=== PATIENT | male | born 1945 | race Caucasian/White ===

== ENCOUNTER 2016-10-07 08:05 | Day surgery (SDC) | payer MEDICARE, OTHER ==
--- NOTE | ~2016-10-07 | EGD ---
EGD REPORT [facility] [address] [address] NAME: HECTOR ROBINS : 41 STATUS : REG [facility] PAT#: [id number] AGE: 71 ADM/REG DATE : 10/07/16 MR#: [id number] REPORT SERV DATE: 10/07/16 DICTATED BY: FERMIN FUENTES DATE: 10/07/16 REPORT STATUS : Draft TRANSCRIBED BY: [facility] DATE: 10/07/16 Endoscopy Center Patient Name: Hector Robins Date of : 1945 Attending MD: FERMIN FUENTES MD Procedure Date No Time: 10/07/2016 Procedure: Upper GI endoscopy Indications: Dysphagia, Abnormal abdominal x-ray of the GI tract Referring MD: GONZALEZ BAZZI Medicines: See the Anesthesia note for documentation of the administered medications Complications: No immediate complications. Procedure: Pre-Anesthesia Assessment: - ASA Grade Assessment: IV - A patient with severe systemic disease that is a constant threat to life. After obtaining informed consent, the endoscope was passed under direct vision. Throughout the procedure, the patient's blood pressure, pulse, and oxygen saturations were monitored continuously. The GIF [id number] was introduced through the mouth, and advanced to the second part of duodenum. The upper GI endoscopy was accomplished without difficulty. The patient tolerated the procedure well. Findings: The examined duodenum was normal. Moderate inflammation characterized by whitish streaks and erythema was found in the gastric antrum. Biopsies were taken with a cold forceps for histology. A small hiatus hernia was present. Tortuous distal esophagus with resistance at GE junction, A guidewire was placed and the scope was withdrawn. Dilation was performed with a Savary dilator with no resistance at 45 Fr and no resistance at 48 Fr. Whitish patches in proximal esophagus, Biopsies were taken with a cold forceps for histology. Impression: - Normal examined duodenum. - Gastritis. Biopsied. - Hiatus hernia. - Tortuous distal esophagus with resistance at GE junction - Whitish patches in proximal esophagus Recommendation: - Patient has a contact number available for emergencies. The signs and symptoms of potential delayed EGD REPORT [address] [place]. [address] NAME: HECTOR ROBINS : [birth year] STATUS : REG [facility]#: [id number] AGE: 71 ADM/REG DATE : 10/07/16 MR#: [id number] REPORT SERV DATE: 10/07/16 DICTATED BY: FERMIN FUENTES DATE: 10/07/16 REPORT STATUS : Draft TRANSCRIBED BY: [facility] DATE: 10/07/16 complications were discussed with the patient. Return to normal activities tomorrow. Written discharge instructions were provided to the patient. - Clear liquid diet today. - Continue present medications. - Clear liquids today, soft diet tomorrow, regular diet the following day - Follow up with Dr Fuentes or his nurse practitioner in 4 weeks - Carafate 1 gm dissolved in 30 cc water four times per day for 2 weeks Procedure Code(s): --- Professional --- 83433, Esophagogastroduodenoscopy, flexible, transoral; with dilation of gastric/duodenal stricture(s) (eg, balloon, bougie) 17649, Esophagogastroduodenoscopy, flexible, transoral; with biopsy, single or multiple Diagnosis Code(s): --- Professional --- K29.70, Gastritis, unspecified, without bleeding K44.9, Diaphragmatic hernia without obstruction or gangrene R13.10, Dysphagia, unspecified R93.3, Abnormal findings on diagnostic imaging of other parts of digestive tract CPT copyright 2013 [employer]. All rights reserved. The codes documented in this report are preliminary and upon layout operator review may be revised to meet current compliance requirements. Fermin Fuentes MD FERMIN FUENTES MD 10/07/2016 10:37 AM This report has been signed electronically. Number of Addenda: 0 Note Initiated On: 10/07/2016 10:12 AM Scope Withdrawal Time 0 hours 0 minutes 0 seconds [address] [place] [address]
[~2016-10-07 08:05] MED LIST: ANDROGEL2.5 GM TOP; ARICEPT10 PO; ASAB PO; AUG875 PO; AVODART PO; BACLOFEN; CELEBREX2 PO; DIMETAPP120 MG OR; DOK250 MG PO; DRAMAMINE25 MG PO; DUONEB INH; EST PO; FERROUS SULF325 M1 PO; FLEX PO; FLONASE NAS; FLORASTOR250 MG PO; FOSAMAX70 MG PO; HYT5 PO; IRON325 MG PO; LYSINE PO; LYSINE1000 MG OR; MCZ25 PO; MEGACEUDL PO; MELATONIN PO; MELATONIN1 M1 PO; MORPHINE; NASAREL29 MCG NAS; NEUR300 PO; OXYCOD PO; OXYCON20 PO; PAIN PUMP; PCET PO; PERCOCET1 TA2 PO; PERI-COLACE1 TAB PO; PHOSLO PO; PRILO PO; PROVHFA INH; RANITIDINE300 MG PO; REM15 PO; RIFADIN 300 MG300 MG PO; SENTAB PO; SIMVASTATIN PO; SMZ PO; SPIRIVA INH; SUDAFED PO; TEG200 PO; TESTOSTERONE TOP; VITAMIN D31000 UNIT PO; VITE PO; ZANTAC300 MG PO; ZINC 50MG TABLET PO; ZINC SULFATE PO; ZOCOR40 PO; ZYRTEC ALLGY10 MG PO
== END 2016-10-07 23:59 | disposition home or self-care (01) ==
LOC: DMU 08:05
PROVIDERS: Internal Medicine Gastroenterology
PROC: 0DB68ZX Excision of Stomach, Via Natural or Artificial Opening Endoscopic, Diagnostic (ICD-10-PCS; principal; 2016-10-07 09:30)
DX: K20.8 Other esophagitis (principal); K29.50 Unspecified chronic gastritis without bleeding; K44.9 Diaphragmatic hernia without obstruction or gangrene; R13.10 Dysphagia, unspecified; R93.3 Abnormal findings on diagnostic imaging of other parts of digestive tract; Z79.899 Other long term (current) drug therapy; Z79.51 Long term (current) use of inhaled steroids; Z88.2 Allergy status to sulfonamides; Z88.1 Allergy status to other antibiotic agents
CPT/HCPCS: 88305; 88342

== ENCOUNTER 2016-10-15 19:42 | Inpatient (IN) | payer MEDICARE, OTHER ==
--- NOTE | ~2016-10-15 | CN ---
Consultation Report [facility] [address] [place]. [address] NAME: HECTOR ROBINS : 41 STATUS : ADM IN PAT#: [id number] AGE: 71 ADM/REG DATE : 10/16/16 MR#: [id number] REPORT SERV DATE: 10/18/16 DICTATED BY: BERNIE UPTON DATE: 10/16/16 REPORT STATUS : Draft TRANSCRIBED BY: MODL DATE: 10/16/16 CONSULTATION DATE OF CONSULTATION: 10/16/2016 REASON FOR EVALUATION: Chest pain and dysphagia. HISTORY OF PRESENT ILLNESS: Mr. Robins is a 71-year-old man seen by Sury Danielle on 09/29/2016 for the first time in referral from Dr. Verma for symptoms of dysphagia, reflux, and abnormal GI x-ray. The patient reports that he is unable to keep food or liquid down, for the last six weeks. On a lengthy interview, he reports his symptoms initially began with heartburn. This was managed with ranitidine and pantoprazole through the [place]. An upper GI with small-bowel follow-through was performed a [facility] demonstrated "marked dysmotility of the distal 2/3 of the esophagus with multiple tertiary contractions," "two small diverticula involving the distal esophagus," "mild gastroesophageal reflux without significant stricture," and cervical spine hardware. He was treated with Carafate which he believes initially gave him good results; however, he continuously needed to modify his diet, eventually tolerating only Ensure. An upper endoscopy was performed by Dr. Fuentes on 10/07/2016, which demonstrated a small hiatal hernia, a tortuous esophagus, and biopsies demonstrating lymphocytic esophagitis. Dilation was performed with 45 and 48-Mongolian dilators without resistance. The patient was seen in followup by Sury on 10/14/2016, when he complained of worsening symptoms. There was a suggestion he had aspirated a pill. Swallowing study was performed the next day, which demonstrated that there was follicular pooling, but no evidence of aspiration. He was admitted to the emergency room. He developed an episode of chest pain after swallowing, clutching his chest, reported as severe. This eventually passed. Constipation is "constant problem" in the setting of narcotic pump. He has undergone colonoscopy in the past at the [place]. PAST MEDICAL HISTORY: 1. Esophageal dysmotility of uncertain nature. 2. COPD, on home O2. 3. Anemia of chronic disease. 4. Chronic pain status post spinal fusion. 5. Chronic constipation. 6. Status post appendectomy. 7. Status post tonsillectomy. MEDICATIONS: On admission include aspirin, calcium citrate, Zyrtec, vitamin D3, Flexeril, docusate, Avodart, Neurontin, Remeron, naproxen, Ditropan, Percocet, Protonix, Zantac, Colace, Zocor, Carafate, AndroGel, vitamin D, and iron. ALLERGIES: SULFA CAUSES A RASH. CIMETIDINE CAUSES BREAST ENLARGEMENT. HE HAS PRIOR ALLERGY Consultation Report [address] [place]. [address] NAME: HECTOR ROBINS : [birth year] STATUS : ADM IN [facility]#: [id number] AGE: 71 ADM/REG DATE : 10/16/16 MR#: [id number] REPORT SERV DATE: 10/18/16 DICTATED BY: BERNIE UPTON DATE: 10/16/16 REPORT STATUS : Draft TRANSCRIBED BY: KACI DATE: 10/16/16 TO GEORGE, BUT DOES NOT RECALL THE PROBLEM. SOCIAL HISTORY: He is cared for through the [facility]. He has a remote history of tobacco use. He does not use alcohol. FAMILY HISTORY: Remarkable for colon polyp. REVIEW OF SYSTEMS: Remarkable for decreased oral intake, stress, home oxygen, reflux, chest pain, dysphagia, chronic constipation, headaches, joint pain, history of blood transfusion, anemia, and chronic fecal incontinence. PHYSICAL EXAMINATION: GENERAL: Elderly man, who is thin. Oxygen in place. VITAL SIGNS: Blood pressure 130/60, temperature 98.1, and heart rate 77. SKIN: Warm and dry. HEENT: No icterus. Oropharynx is moist. NECK: Limited range of motion. CHEST: With bilateral crackles. CARDIAC: Regular rate and rhythm. Normal S1, S2. ABDOMEN: Nondistended, somewhat scaphoid. His pain pump is palpable in the right lower quadrant. There is no gastric distention or tenderness. EXTREMITIES: Warm without edema. LABORATORY DATA: Sodium 139, potassium 4.0, BUN 23, and creatinine 0.96. AST 21, ALT 25, alkaline phosphatase 118, and total bilirubin 0.5. White blood cell count initially 20,000, now 13.9; hemoglobin 10.1; and platelets 243,000. IMPRESSION: 1. Suspect complex situation including esophageal dysmotility of uncertain nature, given hiatal hernia doubt achalasia, but consider equivalent situation. 2. Gastroesophageal reflux. 3. Lymphocytic esophagitis. 4. Consider delayed gastric emptying. 5. Chronic anemia. 6. Chest pain, differential diagnosis includes spasm, pill ulcer. 7. Cait, though this would be more likely to cause ongoing odynophagia. RECOMMENDATION: 1. Gastric emptying test. 2. Consider standard esophageal motility study. 3. P.o. fluticasone. 4. Consider sublingual nifedipine or nitrates if recurrent spasm, or for chronic management. 5. Consider metoclopramide. Consultation Report [address] [place]. [address] NAME: HECTOR ROBINS : 41 STATUS : ADM IN PAT#: [id number] AGE: 71 ADM/REG DATE : 10/16/16 MR#: [id number] REPORT SERV DATE: 10/18/16 DICTATED BY: BERNIE UPTON DATE: 10/16/16 REPORT STATUS : Draft TRANSCRIBED BY: MODL DATE: 10/16/16 6. Continue Carafate. 7. Bowel regimen. 8. Further recommendations pending above. Thank you for asking me to participate in his management. CS/MODL Bernie Upton M.D. / [id number] CC: DO Leonel Mcguire M.D. Donald Hetzel, M.D.
--- NOTE | ~2016-10-15 | HP ---
History And Physical [place] [id number] [facility] [place]. [address] NAME: HECTOR ROBINS : 41 STATUS : ADM IN PAT#: [id number] AGE: 71 ADM/REG DATE : 10/16/16 MR#: [id number] REPORT SERV DATE: 10/16/16 DICTATED BY: DOMENIC TOSCANO DATE: 10/16/16 REPORT STATUS : Draft TRANSCRIBED BY: MODL DATE: 10/16/16 DATE OF ADMISSION: 10/16/2016 POINT OF ENTRY: [facility] Emergency Department. PRIMARY DEAN OF INSTRUCTION: Gerber Pollock M.D. CHIEF COMPLAINT: Nausea, vomiting, and inability to tolerate oral intake. HISTORY OF PRESENT ILLNESS: Mr. Robins is a 71-year-old gentleman with a history of COPD, on 3 L by nasal cannula, chronic pain with a morphine pain pump, as well as a remote history of right-sided empyema requiring VATS and pleural decortication, who presents to the emergency department today with reports of a few-week history of intractable nausea, vomiting, and inability to tolerate any significant oral intake. The patient states that for the past few weeks he has had inability to tolerate any significant oral intake, but up until a few days ago had been able to tolerate some liquids as well as Ensure in order to maintain his nutrition. He has seen Dr. Goyo Pollock as well as nurse practitioner, Ms. Danielle, for workup and reportedly has undergone EGD on 10/07/2016 that showed some gastritis as well as a tortuous distal esophagus that was dilated. He also underwent abdominal ultrasound a few days ago that was otherwise unremarkable. A swallow study was performed yesterday, which showed some oral and vallecular pooling but no evidence of any fredy aspiration. I am unsure of any other additional imaging or workup he may have had for his abdominal complaints. The patient states that for the past three days he has unfortunately been unable to tolerate even any liquid intake as well. A few days ago, he tried to swallow some water and Ensure, and shortly after that, he developed a severe burning sensation in his chest, had to induce vomiting, and shortly after that, the chest discomfort and burning went away. The patient also does report an episode of aspiration about a week and a week and half ago while trying to swallow a pill. He denies any recent fevers, night sweats, chills, chest pain, significant abdominal pain, diarrhea, constipation, dysuria, melena, hematochezia, or hemoptysis. In addition to his nausea, vomiting, and inability to tolerate any oral intake, he does report some stable shortness of breath as well as a daily cough and sputum production. REVIEW OF SYSTEMS: A comprehensive review of systems otherwise negative unless listed in history of present illness. Initial evaluation in the emergency department is notable for stable vital signs with a white count of 18,700. He is on his home 3 L by nasal cannula. CT scan of the abdomen and pelvis was unremarkable except for some left mid lung and basal patchy infiltrates. The patient was subsequently admitted to the Hospitalist Service for further evaluation and management. PREVIOUS MEDICAL HISTORY: History And Physical [address] [address] NAME: HECTOR ROBINS : 41 STATUS : ADM IN [facility]#: [id number] AGE: 71 ADM/REG DATE : 10/16/16 MR#: [id number] REPORT SERV DATE: 10/16/16 DICTATED BY: DOMENIC TOSCANO DATE: 10/16/16 REPORT STATUS : Draft TRANSCRIBED BY: KACI DATE: 10/16/16 1. COPD, on 3 L by nasal cannula. 2. Remote history of ARDS and respiratory failure. 3. Hyperlipidemia. 4. Chronic back pain, on morphine pain pump. 5. History of right-sided empyema, status post VATS decortication. PAST SURGICAL HISTORY: 1. Multiple back surgeries including lumbar and cervical spine. 2. Appendectomy. 3. Right-sided VATS decortication. 4. Morphine pain pump insertion. 5. Neurostimulator insertion. ALLERGIES: STREPTOMYCIN, SULFA DRUGS, AND TAGAMET. MEDICATIONS: Home medications are pending at the time of dictation. SOCIAL HISTORY: He is a former smoker, quit about 20 years ago. Also former alcoholic, quit about 25 years ago. Denies any illicits. FAMILY MEDICAL HISTORY: Father with coronary artery disease. His brother reportedly starved himself to as he did not wish to live anymore. LABORATORIES AND IMAGIN. White count is 18.7, hemoglobin is 10.9, hematocrit is 33.3, platelet count is 267, and INR is 1.3. 2. Sodium is 140, potassium of 4.6, chloride of 101, carbon dioxide of 32, BUN of 26, creatinine of 1.08, glucose is 98, calcium is 9.5, protein is 8.0, albumin is 3.1, bilirubin is 0.4, ALT is 25, AST is 21, and alkaline phosphatase is 118. 3. Lactic acid is 1.1. 4. Urinalysis: Spec gravity is 1.023, trace ketones but no evidence of any infection. 5. Troponin value was negative. 6. EKG, per my review, shows normal sinus rhythm. No evidence of any acute ischemia or infarction. 7. CT scan of the abdomen and pelvis shows no acute findings in the abdomen or pelvis, left lung opacification consistent with airspace infiltrate of uncertain acuity. PHYSICAL EXAMINATION: VITAL SIGNS: Temperature is 98.2 degrees Fahrenheit, pulse is 86, respirations are 18, saturating 92% on 3 L by nasal cannula, and blood pressure of 132/71. GENERAL: The patient is awake, alert, and in no acute distress. He is an elderly male, chronically ill appearing. HEENT: Atraumatic and normocephalic. Slightly dry mucous membranes. Pupils are equal, round, and reactive to light and accommodation. Extraocular movements intact. No scleral icterus. NECK: No jugular venous distention. No carotid bruits. CARDIAC: Regular rate and rhythm. Normal S1, normal S2. History And Physical [address] [address] NAME: HECTOR ROBINS : 41 STATUS : ADM IN [facility]#: [id number] AGE: 71 ADM/REG DATE : 10/16/16 MR#: [id number] REPORT SERV DATE: 10/16/16 DICTATED BY: DOMENIC TOSCANO DATE: 10/16/16 REPORT STATUS : Draft TRANSCRIBED BY: MODL DATE: 10/16/16 LUNGS: On oxygen, but in no respiratory distress. Does have some inspiratory rhonchi in the left lung base, but otherwise no wheezes or crackles appreciated. ABDOMEN: Hypoactive bowel sounds throughout. Soft, nontender, and nondistended with no rebound, guarding, or rigidity. EXTREMITIES: Warm and perfused. No cyanosis, clubbing, or edema. SKIN: Warm and dry. PSYCHIATRIC: Affect is appropriate. NEUROLOGIC: Alert and oriented x3. Cranial nerves 2 through 12 grossly intact. Speech is normal. Gait not assessed. ASSESSMENT: Mr. Robins is a 71-year-old gentleman who presents with a few-week history of intractable nausea and vomiting. He is unable to tolerate any oral intake and incidentally found to have a left lower lobe infiltrate concerning for possible aspiration pneumonia. PROBLEM LIST: 1. Left lower lobe pneumonia concerning for aspiration pneumonia. 2. Leukocytosis. 3. Chronic obstructive pulmonary disease, on chronic 3 L by nasal cannula. 4. Intractable nausea, vomiting, inability to tolerate oral intake. 5. Dehydration. PLAN: 1. Left lower lobe infiltrate concerning for aspiration pneumonia. My concern for aspiration pneumonia includes his reported aspiration event about 10 days ago as well as evidence of oral and vallecular pooling on his swallow study, as well as having repeated episodes of vomiting recently. We will place the patient empirically on IV Zosyn, follow up blood cultures, try to obtain sputum cultures as well, and we will check urinary antigens. We will check a CT scan of the chest to better evaluate the entire lung field given the patient's recent history of empyema requiring VATS decortication. 2. Intractable nausea and vomiting with inability to tolerate oral intake. We will place the patient on IV PPI, provide supportive care with antiemetics and pain control. We will consult the patient's primary freight separator for assistance, although he has undergone extensive workup thus far that has been somewhat unremarkable except for some distal esophageal narrowing status post dilatation as well as a tortuous distal esophagus. We will hold the patient's aspirin as well as naproxen given also findings of gastritis. 3. Dehydration, provide aggressive IV fluid hydration. 4. DVT prophylaxis, Lovenox subcutaneous. 5. Code Status: The patient wishes to be full code. JCB/MODL Domenic Toscano MD History And Physical [address] [place]. [address] NAME: HECTOR ROBINS : 41 STATUS : ADM IN [facility]#: [id number] AGE: 71 ADM/REG DATE : 10/16/16 MR#: [id number] REPORT SERV DATE: 10/16/16 DICTATED BY: DOMENIC TOSCANO DATE: 10/16/16 REPORT STATUS : Draft TRANSCRIBED BY: ANNAMARIEL DATE: 10/16/16 / [id number] CC: DO Leonel Mcguire M.D. Vijaykurmar Patel, M.D.
--- NOTE | ~2016-10-15 | DS ---
Discharge Summary [facility] [address] [place]. [address] NAME: HECTOR ROBINS : 41 STATUS : DIS IN PAT#: [id number] AGE: 71 ADM/REG DATE : 10/16/16 MR#: [id number] REPORT SERV DATE: 10/25/16 DICTATED BY: ROSIE ALFONSO DATE: 10/21/16 REPORT STATUS : Draft TRANSCRIBED BY: MODL DATE: 10/21/16 ADMISSION DATE: 10/16/2016 DISCHARGE DATE: 10/21/2016 PRINCIPAL DIAGNOSES: Severe opioid-induced gastroparesis and constipation with intractable nausea and vomiting and aspiration pneumonia of left lower lobe. SECONDARY DIAGNOSES: Erosive esophagitis, dehydration, hypokalemia, chronic obstructive pulmonary disease. HISTORY OF PRESENT ILLNESS: Please see Dr. Orozco's dictation on 10/16/2016. HOSPITAL COURSE: The patient was admitted with intractable nausea, vomiting, abdominal and chest pain. Negative cardiac workup. EGD had revealed severe esophagitis and gastritis. Gastric emptying study showed no emptying at 70 minutes. The patient however was found to not only take high dose of oral opioids, but had a pain pump with baclofen and morphine and we were not able to excess. He was put on maximum prokinetic therapy including Reglan, naloxegol, and taken off his bowel slowing agents to greater degree as we could. He actually was able to defecate and able to tolerate p.o. and we recommended discharge with close followup with Dr. English, his pain doctor in [place]. He was released in satisfactory condition with Ditropan 5 b.i.d., Protonix b.i.d., Levaquin for two additional days, prednisone 10 for 2 additional days, Reglan 10 mg with meals, Movantik 25 daily, Neurontin 300 t.i.d., Dulera, Lipitor, Florastor, Remeron, Avodart, various vitamins, Carafate q.i.d., reduced dose of Percocet, and again the instructions to have his pain pump reset to reduce the morphine and baclofen dosages. He will follow up with Dr. Leonel Verma, his primary care provider in one to two weeks. Dr. English at the first available appointment and also with GI Clinic in a few weeks to have his other medicines tapered down after his opiates are tapered as well. TOM/KACI Rosie Alfonso M.D. / [id number] CC: Johanna Cool M.D. Ashok Saha, MD
[2016-10-15 23:16] LABS: BASOPHILS 0.2 %; BASOPHILS ABSOLUTE 0.03 10/3/uL (0.0-0.16); EOSINOPHILS 0.2 %; EOSINOPHILS ABSOLUTE 0.04 10/3/uL (0.0-0.53); ER CBC TAT 0 Hrs 12 Mins; HEMATOCRIT 33.3 % (40.0-51.0); HEMOGLOBIN 10.9 g/dL (13.6-17.8); IMMATURE GRANULOCYTES 0.3 %; IMMATURE GRANULOCYTES ABSOLUTE 0.06 10/3/uL (0.0-0.11); LYMPHOCYTES 6.2 %; LYMPHOCYTES ABSOLUTE 1.16 10/3/uL (0.67-4.30); MEAN CORPUS HGB CONC 32.7 g/dL (32.0-36.0); MEAN CORPUSCULAR HEMOGLOB 31.1 pg (26.0-34.0); MEAN CORPUSCULAR VOLUME 95.1 fL (80-100); MEAN PLATELET VOLUME 9.9 fL (9.2-13.0); MONOCYTES 6.9 %; MONOCYTES ABSOLUTE 1.29 10/3/uL (0.21-1.20); NEUTROPHILS 86.2 %; NEUTROPHILS ABSOLUTE 16.09 10/3/uL (2.02-8.40); PLATELET COUNT 267 10/3/uL (150-400); RBC DISTRIBUTION WIDTH 12.7 % (12.0-16.0); WHITE BLOOD CELLS 18.7 10/3/uL (4.5-10.5)
[2016-10-15 23:17] LABS: MANUAL DIFF NO %
[2016-10-15 23:21] LABS: INTERNATIONAL NORMAL RATI 1.3 UNITS (-); PARTIAL THROMBO TIME 40.7 SEC (22.5-37.2)
[2016-10-15 23:29] LABS: A/G RATIO 0.6 (0.7-1.9); ALBUMIN 3.1 G/DL (3.5-5.0); CALCIUM, SERUM 9.5 MG/DL (8.5-10.4); CHLORIDE, SERUM 101 MMOL/L (96-112); CO2 (CARBON DIOXIDE) 32 MMOL/L (24-34); CREATININE 1.08 MG/DL (0.70-1.30); GFR AFRICAN AMERICAN 78 ML/MIN (>=60); GFR NON AFRICAN AMERICAN 68 ML/MIN (>=60); GLOBULIN 4.9 G/DL (2.5-4.1); POTASSIUM, SERUM 4.6 MMOL/L (3.5-5.3); SGOT(AST) 21 U/L (5-40); SGPT(ALT) 25 U/L (5-65); SODIUM, SERUM 140 MMOL/L (135-148); TOTAL BILIRUBIN 0.4 MG/DL (0-1.2)
[2016-10-15 23:29] LABS: LACTATE 1.1 MMOL/L (0.3-2.4)
[2016-10-15 23:30] LABS: ALKALINE PHOSPHATASE 118 U/L (45-117); BUN (BLOOD UREA NITROGEN) 26 MG/DL (6-23); DIRECT BILIRUBIN < 0.1 MG/DL (0.0-0.4); GLUCOSE, SERUM 98 MG/DL (60-99); INDIRECT BILIRUBIN(NOT ORDER) 0.3 MG/DL (0.1-0.9)
[2016-10-15 23:33] LABS: TROPONIN I <0.02 NG/ML (<0.05)
[2016-10-16 00:25] LABS: PROCALCITONIN 1.95 ng/mL (<0.5)
[2016-10-16 00:38] LABS: ASCORBIC ACID (UR NOT ORDER) 40 (NEG); BILIRUBIN, URINE NEGATIVE (NEG); ER URINALYSIS TAT 0 Hrs 00 Mins; KETONE, URINE TRACE MG/DL (NEG); LEUKOCYTE ESTERASE(NOT OR NEG (NEG); NITRITE (URINE) NEG (NEG); WBC (NOT ORDERED) (RFLEX) 2 (0-5)
[2016-10-16] MEDS ORDERED: ANDROGEL1 % TOP (02:55)
[2016-10-16] MEDS ORDERED: FLEX PO (02:56)
[2016-10-16] MEDS ORDERED: CITRACAL PO (02:56)
[2016-10-16] MEDS ORDERED: AVODART PO (02:56)
[2016-10-16] MEDS ORDERED: IRON PO (02:58)
[2016-10-16] MEDS ORDERED: NAP375 PO (02:59)
[2016-10-16] MEDS ORDERED: PROTONIX PO (02:59)
[2016-10-16] MEDS ORDERED: VITAMIN D31000 UNIT PO (03:00)
[2016-10-16] MEDS ORDERED: PERI-COLACE1 TAB PO (03:00)
[2016-10-16] MEDS ORDERED: ASA5GR PO (03:01)
[2016-10-16] MEDS ORDERED: D.O.S.100 MG PO (03:02)
[2016-10-16] MEDS ORDERED: ZYRTEC ALLGY10 MG PO (03:02)
[2016-10-16] MEDS ORDERED: NEUR300 PO (03:04)
[2016-10-16] MEDS ORDERED: DITRO5 PO (03:05)
[2016-10-16] MEDS ORDERED: REM15 PO (03:05)
[2016-10-16] MEDS ORDERED: RANITIDINE300 MG PO (03:05)
[2016-10-16] MEDS ORDERED: VITE PO (03:06)
[2016-10-16] MEDS ORDERED: PCET PO (03:06)
[2016-10-16] MEDS ORDERED: ZOCOR80 MG PO (03:06)
[2016-10-16] MEDS ORDERED: SUCR PO (03:07)
[2016-10-16 06:53] LABS: BASOPHILS 0.1 %; BASOPHILS ABSOLUTE 0.02 10/3/uL (0.0-0.16); EOSINOPHILS 0.9 %; EOSINOPHILS ABSOLUTE 0.13 10/3/uL (0.0-0.53); HEMATOCRIT 31.1 % (40.0-51.0); HEMOGLOBIN 10.1 g/dL (13.6-17.8); IMMATURE GRANULOCYTES 0.4 %; IMMATURE GRANULOCYTES ABSOLUTE 0.05 10/3/uL (0.0-0.11); LYMPHOCYTES 7.9 %; MANUAL DIFF NO %; MEAN CORPUS HGB CONC 32.5 g/dL (32.0-36.0); MEAN CORPUSCULAR VOLUME 95.4 fL (80-100); MEAN PLATELET VOLUME 10.1 fL (9.2-13.0); MONOCYTES 6.5 %; MONOCYTES ABSOLUTE 0.91 10/3/uL (0.21-1.20); NEUTROPHILS 84.2 %; NEUTROPHILS ABSOLUTE 11.72 10/3/uL (2.02-8.40); PLATELET COUNT 243 10/3/uL (150-400); RBC DISTRIBUTION WIDTH 12.7 % (12.0-16.0); RED CELL COUNT 3.26 10/6/uL (4.7-6.1); WHITE BLOOD CELLS 13.9 10/3/uL (4.5-10.5)
[2016-10-16 06:57] LABS: BUN (BLOOD UREA NITROGEN) 23 MG/DL (6-23); CHLORIDE, SERUM 103 MMOL/L (96-112); CREATININE 0.96 MG/DL (0.70-1.30); GFR AFRICAN AMERICAN 91 ML/MIN (>=60); GFR NON AFRICAN AMERICAN 78 ML/MIN (>=60); GLUCOSE, SERUM 93 MG/DL (60-99); SODIUM, SERUM 139 MMOL/L (135-148)
[2016-10-16 06:58] LABS: CO2 (CARBON DIOXIDE) 27 MMOL/L (24-34)
[2016-10-16 10:41] LABS: HEMATOCRIT 30.1 % (40.0-51.0); HEMOGLOBIN 9.9 g/dL (13.6-17.8)
[2016-10-16 18:42] LABS: ASCORBIC ACID (UR NOT ORDER) 40 (NEG); BILIRUBIN, URINE NEGATIVE (NEG); KETONE, URINE 20 MG/DL (NEG); LEUKOCYTE ESTERASE(NOT OR NEG (NEG); WBC (NOT ORDERED) (RFLEX) 1 (0-5)
[2016-10-16 20:58] LABS: HEMATOCRIT 31.7 % (40.0-51.0); HEMOGLOBIN 10.4 g/dL (13.6-17.8)
[2016-10-17 03:53] LABS: BASOPHILS 0.1 %; BASOPHILS ABSOLUTE 0.01 10/3/uL (0.0-0.16); EOSINOPHILS 0.6 %; EOSINOPHILS ABSOLUTE 0.07 10/3/uL (0.0-0.53); HEMATOCRIT 28.7 % (40.0-51.0); HEMOGLOBIN 9.3 g/dL (13.6-17.8); IMMATURE GRANULOCYTES 0.3 %; IMMATURE GRANULOCYTES ABSOLUTE 0.03 10/3/uL (0.0-0.11); LYMPHOCYTES 10.6 %; LYMPHOCYTES ABSOLUTE 1.26 10/3/uL (0.67-4.30); MEAN CORPUS HGB CONC 32.4 g/dL (32.0-36.0); MEAN CORPUSCULAR VOLUME 95.7 fL (80-100); MEAN PLATELET VOLUME 10.1 fL (9.2-13.0); MONOCYTES 7.8 %; MONOCYTES ABSOLUTE 0.93 10/3/uL (0.21-1.20); NEUTROPHILS 80.6 %; NEUTROPHILS ABSOLUTE 9.58 10/3/uL (2.02-8.40); PLATELET COUNT 237 10/3/uL (150-400); RBC DISTRIBUTION WIDTH 12.5 % (12.0-16.0); WHITE BLOOD CELLS 11.9 10/3/uL (4.5-10.5)
[2016-10-17 03:54] LABS: MANUAL DIFF NO %
[2016-10-17 04:03] LABS: CHLORIDE, SERUM 104 MMOL/L (96-112); CO2 (CARBON DIOXIDE) 28 MMOL/L (24-34); CREATININE 0.93 MG/DL (0.70-1.30); GFR AFRICAN AMERICAN 94 ML/MIN (>=60); GFR NON AFRICAN AMERICAN 81 ML/MIN (>=60); PHOSPHORUS, SERUM 3.1 MG/DL (2.5-4.5); SODIUM, SERUM 141 MMOL/L (135-148)
[2016-10-17 04:04] LABS: BUN (BLOOD UREA NITROGEN) 19 MG/DL (6-23); GLUCOSE, SERUM 124 MG/DL (60-99)
[2016-10-18 05:09] LABS: BASOPHILS 0.1 %; BASOPHILS ABSOLUTE 0.01 10/3/uL (0.0-0.16); EOSINOPHILS 0.3 %; EOSINOPHILS ABSOLUTE 0.03 10/3/uL (0.0-0.53); HEMOGLOBIN 9.2 g/dL (13.6-17.8); IMMATURE GRANULOCYTES 0.4 %; IMMATURE GRANULOCYTES ABSOLUTE 0.04 10/3/uL (0.0-0.11); MANUAL DIFF NO %; MEAN CORPUS HGB CONC 32.9 g/dL (32.0-36.0); MEAN CORPUSCULAR HEMOGLOB 31.3 pg (26.0-34.0); MEAN CORPUSCULAR VOLUME 95.2 fL (80-100); MEAN PLATELET VOLUME 9.8 fL (9.2-13.0); MONOCYTES ABSOLUTE 0.64 10/3/uL (0.21-1.20); NEUTROPHILS 80.2 %; NEUTROPHILS ABSOLUTE 7.35 10/3/uL (2.02-8.40); PLATELET COUNT 252 10/3/uL (150-400); RBC DISTRIBUTION WIDTH 12.6 % (12.0-16.0); RED CELL COUNT 2.94 10/6/uL (4.7-6.1); WHITE BLOOD CELLS 9.2 10/3/uL (4.5-10.5)
[2016-10-18 05:32] LABS: CHLORIDE, SERUM 105 MMOL/L (96-112); CO2 (CARBON DIOXIDE) 29 MMOL/L (24-34); GFR AFRICAN AMERICAN 103 ML/MIN (>=60); GFR NON AFRICAN AMERICAN 89 ML/MIN (>=60); GLUCOSE, SERUM 102 MG/DL (60-99); POTASSIUM, SERUM 3.5 MMOL/L (3.5-5.3); SODIUM, SERUM 141 MMOL/L (135-148)
[2016-10-18 05:33] LABS: BUN (BLOOD UREA NITROGEN) 13 MG/DL (6-23); PHOSPHORUS, SERUM 2.1 MG/DL (2.5-4.5)
[2016-10-19 05:18] LABS: HEMATOCRIT 31.3 % (40.0-51.0); MANUAL DIFF YES %; MEAN CORPUS HGB CONC 31.9 g/dL (32.0-36.0); MEAN CORPUSCULAR HEMOGLOB 30.8 pg (26.0-34.0); MEAN CORPUSCULAR VOLUME 96.3 fL (80-100); MEAN PLATELET VOLUME 9.8 fL (9.2-13.0); PLATELET COUNT 290 10/3/uL (150-400); RBC DISTRIBUTION WIDTH 12.6 % (12.0-16.0); RED CELL COUNT 3.25 10/6/uL (4.7-6.1); WHITE BLOOD CELLS 10.4 10/3/uL (4.5-10.5)
[2016-10-19 05:42] LABS: BUN (BLOOD UREA NITROGEN) 12 MG/DL (6-23); CALCIUM, SERUM 9.5 MG/DL (8.5-10.4); CHLORIDE, SERUM 103 MMOL/L (96-112); CO2 (CARBON DIOXIDE) 31 MMOL/L (24-34); GFR AFRICAN AMERICAN 98 ML/MIN (>=60); GFR NON AFRICAN AMERICAN 84 ML/MIN (>=60); GLUCOSE, SERUM 100 MG/DL (60-99); PHOSPHORUS, SERUM 1.6 MG/DL (2.5-4.5); SODIUM, SERUM 140 MMOL/L (135-148)
[2016-10-19 06:12] LABS: PROCALCITONIN 0.21 ng/mL (<0.5)
[2016-10-19 06:14] LABS: BAND NEUTROPHILS 8 %; EOSINOPHILS 1 %; LYMPHOCYTES 12 %; LYMPHOCYTES ABSOLUTE (CALC) 1.25 10/3/uL (0.67-4.30); MONOCYTES 2 %; MONOCYTES ABSOLUTE (CALC) 0.21 10/3/uL (0.21-1.20); NEUTROPHILS ABSOLUTE (CALC) 8.84 10/3/uL (2.02-8.40); SEGMENTED NEUTROPHIL (0) 77 %; TOTAL NUCLEATED CELLS 100
[2016-10-19 06:17] LABS: PLATELET ESTIMATE ADQ (ADEQUATE)
[2016-10-19 06:18] LABS: RBC MORPHOLOGY NORM (NORMAL)
[2016-10-20 05:44] LABS: BASOPHILS 0.1 %; BASOPHILS ABSOLUTE 0.01 10/3/uL (0.0-0.16); EOSINOPHILS 0.6 %; EOSINOPHILS ABSOLUTE 0.06 10/3/uL (0.0-0.53); HEMATOCRIT 27.1 % (40.0-51.0); HEMOGLOBIN 8.8 g/dL (13.6-17.8); IMMATURE GRANULOCYTES 1.1 %; IMMATURE GRANULOCYTES ABSOLUTE 0.12 10/3/uL (0.0-0.11); LYMPHOCYTES ABSOLUTE 1.57 10/3/uL (0.67-4.30); MANUAL DIFF NO %; MEAN CORPUS HGB CONC 32.5 g/dL (32.0-36.0); MEAN CORPUSCULAR HEMOGLOB 31.1 pg (26.0-34.0); MEAN CORPUSCULAR VOLUME 95.8 fL (80-100); MEAN PLATELET VOLUME 9.9 fL (9.2-13.0); MONOCYTES 7.7 %; NEUTROPHILS 75.5 %; NEUTROPHILS ABSOLUTE 7.88 10/3/uL (2.02-8.40); PLATELET COUNT 264 10/3/uL (150-400); RBC DISTRIBUTION WIDTH 12.7 % (12.0-16.0); RED CELL COUNT 2.83 10/6/uL (4.7-6.1); RETICULOCYTE COUNT 1.2 % (0.5-2.5); RETICULOCYTE COUNT ABSOLUTE 34.5 10/3/uL (20.2-119.8); WHITE BLOOD CELLS 10.4 10/3/uL (4.5-10.5)
[2016-10-20 06:15] LABS: % IRON SAT 47 % (20-50); BUN (BLOOD UREA NITROGEN) 12 MG/DL (6-23); CALCIUM, SERUM 9.2 MG/DL (8.5-10.4); CHLORIDE, SERUM 105 MMOL/L (96-112); CO2 (CARBON DIOXIDE) 30 MMOL/L (24-34); CREATININE 0.88 MG/DL (0.70-1.30); FERRITIN 970 NG/ML (26-388); GFR AFRICAN AMERICAN 99 ML/MIN (>=60); GFR NON AFRICAN AMERICAN 85 ML/MIN (>=60); GLUCOSE, SERUM 117 MG/DL (60-99); IRON BINDING CAPACITY 130 MCG/DL (250-450); IRON, SERUM 61 MCG/DL (35-150); PHOSPHORUS, SERUM 1.9 MG/DL (2.5-4.5); SODIUM, SERUM 141 MMOL/L (135-148)
[2016-10-21 06:05] LABS: BASOPHILS 0.2 %; BASOPHILS ABSOLUTE 0.02 10/3/uL (0.0-0.16); EOSINOPHILS 1.8 %; EOSINOPHILS ABSOLUTE 0.19 10/3/uL (0.0-0.53); HEMOGLOBIN 9.8 g/dL (13.6-17.8); IMMATURE GRANULOCYTES 1.2 %; IMMATURE GRANULOCYTES ABSOLUTE 0.13 10/3/uL (0.0-0.11); LYMPHOCYTES ABSOLUTE 1.39 10/3/uL (0.67-4.30); MEAN CORPUS HGB CONC 32.1 g/dL (32.0-36.0); MEAN CORPUSCULAR HEMOGLOB 30.7 pg (26.0-34.0); MEAN CORPUSCULAR VOLUME 95.6 fL (80-100); MEAN PLATELET VOLUME 9.7 fL (9.2-13.0); MONOCYTES 7.4 %; MONOCYTES ABSOLUTE 0.79 10/3/uL (0.21-1.20); NEUTROPHILS 76.4 %; NEUTROPHILS ABSOLUTE 8.16 10/3/uL (2.02-8.40); PLATELET COUNT 294 10/3/uL (150-400); RBC DISTRIBUTION WIDTH 12.7 % (12.0-16.0); RED CELL COUNT 3.19 10/6/uL (4.7-6.1); WHITE BLOOD CELLS 10.7 10/3/uL (4.5-10.5)
[2016-10-21 06:06] LABS: HEMATOCRIT 30.5 % (40.0-51.0)
[2016-10-21 06:07] LABS: MANUAL DIFF NO %
[2016-10-21] MEDS ORDERED: FLONASE NAS (09:55)
[2016-10-21] MEDS ORDERED: LEVAQUIN750 MG PO ×2 (09:57→10:11)
[2016-10-21] MEDS ORDERED: REG PO ×2 (09:58→10:12)
[2016-10-21] MEDS ORDERED: PROTONIX PO (10:09)
[2016-10-21] MEDS ORDERED: REM15 PO (10:12)
[2016-10-21] MEDS ORDERED: ZYRTEC ALLGY10 MG PO (10:12)
[2016-10-21] MEDS ORDERED: MOVANTIK25 MG PO (10:13)
[2016-10-21] MEDS ORDERED: VITAMIN D31000 UNIT PO (10:15)
[2016-10-21] MEDS ORDERED: AVODART PO (10:18)
[2016-10-21] MEDS ORDERED: P10 PO (10:20)
[2016-10-21] MEDS ORDERED: DULERA 200 MCG/13 GM INH (10:20)
== END 2016-10-21 12:09 | disposition home or self-care (01) | DRG 177 ==
LOC: ER 19:42 → 1SO 10-16 02:55
PROVIDERS: Internal Medicine; Nurse Practitioner
DX: J69.0 Pneumonitis due to inhalation of food and vomit (principal); J96.21 Acute and chronic respiratory failure with hypoxia; K22.10 Ulcer of esophagus without bleeding; Z99.81 Dependence on supplemental oxygen; J44.9 Chronic obstructive pulmonary disease, unspecified; B37.9 Candidiasis, unspecified; K31.84 Gastroparesis; E78.5 Hyperlipidemia, unspecified; D63.8 Anemia in other chronic diseases classified elsewhere; Z66 Do not resuscitate; G89.29 Other chronic pain; E86.0 Dehydration; K21.9 Gastro-esophageal reflux disease without esophagitis; M54.9 Dorsalgia, unspecified; K22.4 Dyskinesia of esophagus; K44.9 Diaphragmatic hernia without obstruction or gangrene; K59.03 Drug induced constipation; T40.2X5A Adverse effect of other opioids, initial encounter; Z87.891 Personal history of nicotine dependence; Z79.82 Long term (current) use of aspirin; Z79.899 Other long term (current) drug therapy; Z87.01 Personal history of pneumonia (recurrent); Z98.1 Arthrodesis status; Z88.1 Allergy status to other antibiotic agents; Z88.2 Allergy status to sulfonamides; Z88.8 Allergy status to other drugs, medicaments and biological substances
CPT/HCPCS: 36415; 71020; 71250; 74176; 74230; 76700; 78264; 80048; 80053; 81001; 82248; 82272; 82728; 82784; 83516; 83516-59; 83540; 83550; 83605; 83690; 83735; 84100; 84145; 84484; 85014; 85018; 85025; 85027; 85045; 85610; 85730; 86256; 86850; 86900; 86901; 87040; 87070; 87205; 87449; 92611-GN; 93005; 94640; 94667; 94668; 96374; 99285; A9270-GY; A9541; C9113; G8996-CJ-GN; G8997-CJ-GN; G8998-CJ-GN; J1170; J1450; J1956; J2405; J2543; J2765; J2930